=== PATIENT | male | born 1995 | race Caucasian/White ===

== ENCOUNTER 2024-09-30 08:40 | Emergency (ER) | payer OTHER, SELFPAY ==
[2024-09-30 08:58] VITALS: BP 136/78
--- NOTE | 2024-09-30 09:32 | ED.GENMED ---
History of Present Illness
General
Chief Complaint: Musculo-Skeletal Complaint
Source: patient
Exam Limitations: none
Time Seen by Provider: 09/30/24 09:29
Nursing documentation reviewed up to this point in time: agreed with
History of Present Illness
History of Present Illness:
Patient is a 29-year-old male who was putting a bunk bed together last night and a piece fell onto his left foot. He is able to bear weight but does have discomfort he complains of pain along the top of his foot some tingling in his toes no
lacerations. No other injuries.
Review of Systems
Review of Systems
Allergies reviewed?: Yes
All Other Systems: ROS reviewed and negative except as documented in HPI and ROS
Musculoskeletal: Reports other (left foot pain )
Skin: Reports no symptoms
Psychiatric: Reports no symptoms
Phy Exam
General Physical Exam
General Presentation: no apparent distress
General age: appears stated age
General Skin: warm and dry
General Habitus: normal
General Mental: alert
General Hydration: appears well hydrated
Neurological Exam
Neurological Exam: alert and oriented x3
Musculoskeletal Exam
Musculoskeletal Exam: other (+ Tenderness to the dorsal aspect of his left foot no obvious ecchymosis or abrasions minimal swelling no bony ankle tenderness normal distal sensation and cap refill)
Skin Exam
Skin Exam: normal color and warm/dry
Psychiatric Exam
Psychiatric Exam: normal mood/affect
Course
Orders/Labs/Results
Orders:
Orders
09/30/24 09:09
CR Foot - Left Min 3 Views Urgent
Comment:
Reason For Exam: injury/pain
09/30/24 09:35
EKG- Treatment ONCE
0.9% Sodium Chloride 1000 ml [Nss] 1,000 ml IV BOLUS
Ketorolac [Toradol] 15 mg IV NOW STA
09/30/24 09:35
09/30/24 09:35
Vital Signs
Initial and Last Documented VS:
Initial Vital Signs
Temp Pulse Resp BP Pulse Ox
98.1 F 70 18 136/78 100
09/30/24 08:58 09/30/24 08:58 09/30/24 08:58 09/30/24 08:58 09/30/24 08:58
Last Documented Vital Signs
Temp Pulse Resp BP Pulse Ox
98.1 F 70 18 136/78 100
09/30/24 08:58 09/30/24 08:58 09/30/24 08:58 09/30/24 08:58 09/30/24 08:58
MDM/Problems Addressed
Differential Diagnosis Includes:
Not limited to contusion versus fracture
MDM/Problems Addressed:
Symptoms are consistent with contusion no obvious fractures will DC with ice elevation ibuprofen.
*Radiology
Radiology exam reviewed: radiology read reviewed
*Pulse Oximetry
Patient hypoxic: no
*Critical Care Note
Total Time (30-74mins, 75-104mins- exclusive of procedures): Not Applicable
ED Attending Note
-
Portions of this chart may have been created with voice recognition software.� Occasional wrong word or��sound alike� substitutions may have occurred due to the inherent limitations of voice recognition software.
Discharge Plan
Departure
Patient Disposition: Home (Routine Discharge)
Date of Disposition: 09/30/24
Time of Disposition: 10:36
Patient with high blood pressure during this ER visit?: Yes
Condition: Fair
Covid-19: Not Applicable
Discharge Problem:
Contusion of foot
Instructions: Contusion (DC)
Prescriptions:
No Action
ibuprofen 200 MG tablet
600 mg PO QIDPRN PRN (Reason: pain) Qty: 1 0RF
acetaminophen [Tylenol] 325 MG capsule
650 mg PO Q4HPRN PRN (Reason: breakthrough pain) Qty: 1 0RF
Referrals:
NONE,* [Family Provider, Internal Medicine]
Stand Alone Forms: Return to Work
Activity Restrictions/Additional Instructions:
As discussed symptoms are consistent with contusion. You may ice the affected area and take ibuprofen as needed. Keep elevated. Follow-up with family doctor in the next several days as needed r.
eturn if any worsening of symptoms.
Interventions
Interventions:
*Risk Screen - Suicide Last Done: 09/30/24 08:58
*General Assessment Last Done: 09/30/24 11:00
*Neglect/Abuse Screening Last Done: 09/30/24 09:02
*ED- Fall Risk Assessment Last Done: 09/30/24 11:00
*ED COVID-19 Vaccine History Last Done: 09/30/24 08:58
Discharge Date and Time
Print Language: CAMBODIAN
== END 2024-09-30 11:00 | disposition home or self-care (01) ==
LOC: EMR 08:40
PROVIDERS: EMERGENCY PHYSICIAN Emergency Medicine
DX: S90.32XA Contusion of left foot, initial encounter (principal); W20.8XXA Other cause of strike by thrown, projected or falling object, initial encounter
CPT/HCPCS: 99284; 73630